=== PATIENT | male | born 1995 | race Caucasian/White ===

== ENCOUNTER 2018-08-25 21:36 | Emergency (ER) | payer OTHER ==
[2018-08-25 22:00] VITALS: PULSE 68
[2018-08-25] MEDS ORDERED: HYDROcodone/APAP 5-325MG 1 EACH TAB PO STA (22:01)
--- NOTE | 2018-08-25 22:28 | XR ---
EXAM: XR Left Foot Complete, 3 or More Views CLINICAL HISTORY: ITS.REASON XR Reason: Pain TECHNIQUE: Frontal, lateral and oblique views of the left foot. COMPARISON: None available FINDINGS: Bones/joints: No evidence of acute fracture or dislocation. Soft tissues: Soft tissue swelling along dorsum of foot. No radiopaque foreign bodies identified. IMPRESSION: No evidence of acute fracture or dislocation.
[2018-08-25] MEDS ORDERED: ACET/COD 300 MG/30 MG STARTER PACK 6 TAB BTL PO STA (23:07)
--- NOTE | 2018-08-25 23:07 | ED ---
General Adult HPI - General Chief complaint: Extremity Injury, Lower Stated complaint: Foot injury Time Seen by Provider: 08/25/18 21:49 Source: patient, RN notes reviewed, old records reviewed Mode of arrival: wheelchair Limitations: no limitations - History of Present Illness Initial comments: 23-year-old male patient presents ED with left foot injury. Patient will see his moving a fridge when it fell onto his left foot and the dorsal aspect. Patient force that he has pain in the dorsal aspect of the midfoot region. Patient denies any ankle or tibia/fibular pain. Patient is not able to bear weight due to pain in left foot. Patient denies any other complaints at this time. Patient is fully vaccinated. Systemic: Pt denies fatigue, fever/chills, rash. Pt denies weakness, night sweats, weight loss. Neuro: Pt denies headache, visual disturbances, syncope or pre-syncope. HEENT: Pt denies ocular discharge or irritation, otalgia, rhinorrhea, pharyngitis or notable lymphadenopathy. Cardiopulmonary: Pt denies chest pain, SOB, heart palpitations, dyspnea on exertion. Abdominal/GI: Pt denies abdominal pain, n/v/d. : Pt denies dysuria, burning w/ urination, frequency/urgency. Denies new onset urinary or bowel incontinence. MSK: Pt denies loss of strength or function in extremities. Neuro: Pt denies new onset weakness, paresthesias. - Related Data Home Medications Medication Instructions Recorded Confirmed No Known Home Medications 08/25/18 08/25/18 Allergies Allergy/AdvReac Type Severity Reaction Status Date / Time Penicillins Allergy Anaphylaxis Verified 08/25/18 21:51 Sulfa (Sulfonamide Allergy Rash/Hives Verified 08/25/18 21:51 Antibiotics) Review of Systems ROS Statement: Those systems with pertinent positive or pertinent negative responses have been documented in the HPI. ROS Other: All systems not noted in ROS Statement are negative. Past Medical History Additional Past Medical History / Comment(s): colitis History of Any Multi-Drug Resistant Organisms: None Reported Past Surgical History: Tonsillectomy Additional Past Surgical History / Comment(s): all teeth removed Past Psychological History: ADD/ADHD, Anxiety, Depression Smoking Status: Current every day smoker Past Alcohol Use History: Rare Past Drug Use History: Marijuana General Exam - General Exam Comments Initial Comments: Constitutional: NAD, AOX3, Pt has pleasant affect. HEENT: NC/AT, trachea midline, neck supple, no lymphadenopathy. Posterior pharynx non erythematous, without exudates. External ears appear normal, without discharge. Mucous membranes moist. Eyes PERRLA, EOM intact. There is no scleral icterus. No pallor noted. Cardiopulmonary: RRR, no murmurs, rubs or gallops, no JVD noted. Lungs CTAB in anterior and posterior grigsby. No peripheral edema. Abdominal exam: Abdomen soft and non-distended. Abdomen non-tender to palpation in all 4 quadrants. Bowel sounds active in LLQ. No hepatosplenomegaly. No ecchymosis Neuro: CN II-XII grossly intact. No nuchal rigidity. No raccon eyes, no vora sign, no hemotympanum. No cervical spinal tenderness. MSK: Dorsal aspect of left foot mildly tender to palpation in the midfoot region. Mild amount of edema. No erythema or ecchymoses. Patient able to wiggle toes. Sensation intact. No ankle or to/fibula tenderness. Distal pulses intact. Capillary refill less than 2 seconds. No posterior calf tenderness bilaterally, homans sign negative bilaterally. Posterior tibialis and radial pulse +2 bilaterally. Sensation intact in upper and lower extremities. Full active ROM in upper and lower extremities, 5/5 stregnth. Limitations: no limitations Course Vital Signs 08/25/18 21:49 Temperature 98.2 F Pulse Rate 68 Respiratory 19 Rate Blood Pressure 114/68 O2 Sat by Pulse 97 Oximetry Medical Decision Making - Medical Decision Making 23-year-old male patient presents ED with left foot injury. Patient will see his moving a fridge when it fell onto his left foot and the dorsal aspect. Patient force that he has pain in the dorsal aspect of the midfoot region. Patient denies any ankle or tibia/fibular pain. Patient is not able to bear weight due to pain in left foot. Patient denies any other complaints at this time. Patient is fully vaccinated. Pt VSS, afebrile. Physical exam displayed: Dorsal aspect of left foot mildly tender to palpation in the midfoot region. Mild amount of edema. No erythema or ecchymoses. Patient able to wiggle toes. Sensation intact. No ankle or to/fibula tenderness. Distal pulses intact. Cap illary refill less than 2 seconds. Plain film displayed no acute process. Posterior ankle splint placed, pt neurovascularly intact after splint placement. Patient cannot bear weight on left foot. Patient to follow with orthopedic consult 1-2 days. Patient return to ER if condition worsens. Case discussed with Dr. Thomas. Disposition Clinical Impression: Foot sprain Disposition: HOME SELF-CARE Condition: Stable Instructions (If sedation given, give patient instructions): Foot Sprain (ED) Additional Instructions: Patient to adhere to previously discussed treatment plan and will take medication(s) as directed. Patient to follow up with PCP in 1-2 days. Patient to return to ED if symptoms do not improve. Follow-up with primary care for right orthopedic consult tomorrow. Return to ER if condition worsens. Do not bear weight on left lower extremity Is patient prescribed a controlled substance at d/c from ED?: No Referrals: Chris Romero DO [Primary Care Provider] - 1-2 days Alex Urrutia DO [Medical Doctor] - 1-2 days
[2018-08-25 23:23] VITALS: BP 118/65; RESP 18; TEMP 98.3
== END 2018-08-25 23:23 | disposition home or self-care (01) ==
LOC: EC 21:36
DX: S93.602A Unspecified sprain of left foot, initial encounter (principal); F17.200 Nicotine dependence, unspecified, uncomplicated; Z88.0 Allergy status to penicillin; Z88.2 Allergy status to sulfonamides; W20.8XXA Other cause of strike by thrown, projected or falling object, initial encounter; Y93.89 Activity, other specified; Y92.009 Unspecified place in unspecified non-institutional (private) residence as the place of occurrence of the external cause
CPT/HCPCS: 29515; 99284

== ENCOUNTER 2020-01-10 13:18 | Emergency (ER) | payer OTHER ==
--- NOTE | 2020-01-10 14:28 | XR ---
EXAMINATION TYPE: XR chest 2V DATE OF EXAM: 01/10/2020 COMPARISON: None HISTORY: 24-year-old male with chest pain TECHNIQUE: PA and lateral views FINDINGS: The cardiomediastinal silhouette, aorta, and pulmonary vasculature are within normal limits. Lungs an d pleural spaces are clear. Gentle levoconvex curvature of the upper thoracic spine. Left shoulder is higher than the right. IMPRESSION: No acute cardiopulmonary process. Query a subtle leftward curvature along the upper thoracic spine.
[2020-01-10 15:33] LABS: Basophils % (A) 1 %; Eosinophils # (A) 0.1 k/uL (0-0.7); Eosinophils % (A) 2 %; HCT 46.6 % (39.0-53.0); HGB 15.4 gm/dL (13.0-17.5); Lymphocytes # (A) 2.3 k/uL (1.0-4.8); Lymphocytes % (A) 35 %; MCH 30.1 pg (25.0-35.0); MCHC 33.1 g/dL (31.0-37.0); MCV 90.8 fL (80.0-100.0); Mean Platelet Volume 7.5; Monocytes # (A) 0.4 k/uL (0-1.0); Monocytes % (A) 6 %; Neutrophils # (A) 3.7 k/uL (1.3-7.7); Neutrophils % (A) 56 %; Platelet Count 188 k/uL (150-450); RBC 5.14 m/uL (4.30-5.90); RDW 12.7 % (11.5-15.5); WBC 6.5 k/uL (3.8-10.6)
[2020-01-10 15:42] LABS: ALT 17 U/L (4-49); AST 34 U/L (17-59); African American GFR (CKD) >90 (>60 ml/min/1.73 sqM); Albumin 4.6 g/dL (3.5-5.0); Alkaline Phosphatase 47 U/L (38-126); Anion Gap 6 mmol/L; Blood Urea Nitrogen 11 mg/dL (9-20); Calcium 9.6 mg/dL (8.4-10.2); Carbon Dioxide 28 mmol/L (22-30); Chloride 105 mmol/L (98-107); Glucose 82 mg/dL (74-99); Magnesium 2.2 mg/dL (1.6-2.3); Non-African American GFR(CKD) >90 (>60 ml/min/1.73 sqM); Potassium 4.8 mmol/L (3.5-5.1); Sodium 139 mmol/L (137-145); Total Bilirubin 0.5 mg/dL (0.2-1.3); Total Protein 7.2 g/dL (6.3-8.2)
[2020-01-10 15:47] LABS: D-Dimer 0.36 mg/L FEU (<0.60); INR 1.1 (<1.2); Partial Thromboplastin Time 26.1 sec (22.0-30.0); Prothrombin Time 10.9 sec (9.0-12.0)
--- NOTE | 2020-01-10 16:02 | ED ---
Chest Pain HPI - General Chief Complaint: Chest Pain Stated Complaint: chest pain, sob Time Seen by Provider: 01/10/20 14:33 Source: patient Mode of arrival: ambulatory Limitations: no limitations - History of Present Illness Initial Comments: 24-year-old male with a decompressed medical history presenting to emergency Department with a chief complaint of chest pain and shortness of breath. Patient states the pain started yesterday night and continues to be worse throughout the day but he states there has been some improvement since this afternoon. Patient states this is a midsternal chest pain without any radiation there is reproducible to palpation. He also reports shortness of breath states the pain is exacerbated with deep breaths. He denies any history of DVT or PE, recent hospitalizations, exogenous hormone use, unilateral leg swelling or pain, hemoptysis. States she is a smoker and does have occasional wheezing in the morning which is somewhat typical for him. He denies any night sweats or chills. He is a smoker. - Related Data Previous Rx's Medication Instructions Recorded Albuterol Sulfate [Ventolin HFA] 1 - 2 puff INHALATION Q6H PRN #1 01/10/20 inhaler Allergies Allergy/AdvReac Type Severity Reaction Status Date / Time Penicillins Allergy Anaphylaxis Verified 01/10/20 13:27 Sulfa (Sulfonamide Allergy Rash/Hives Verified 01/10/20 13:27 Antibiotics) Review of Systems ROS Statement: Those systems with pertinent positive or pertinent negative responses have been documented in the HPI. ROS Other: All systems not noted in ROS Statement are negative. EKG Findings - EKG Comments: EKG Findings:: Sinus bradycardia with sinus arrhythmia. Ventricular rate 45, IA 144, QRS 88, QTC 378. Past Medical History Additional Past Medical History / Comment(s): colitis, History of Any Multi-Drug Resistant Organisms: None Reported Past Surgical History: Tonsillectomy Additional Past Surgical History / Comment(s): all teeth removed, Past Psychological History: ADD/ADHD, Anxiety, Depression, Schizophrenia Smoking Status: Current every day smoker Past Alcohol Use History: Rare Past Drug Use History: Marijuana General Exam Limitations: no limitations General appearance: alert, in no apparent distress Head exam: Present: atraumatic, normocephalic, normal inspection Eye exam: Present: normal appearance, PERRL, EOMI Pupils: Present: normal accommodation ENT exam: Present: normal exam, normal oropharynx, mucous membranes moist, TM's normal bilaterally, normal external ear exam Neck exam: Present: normal inspection, full ROM. Absent: tenderness Respiratory exam: Present: wheezes (Mild diffuse wheezing, bilateral.). Absent: respiratory distress, rales, rhonchi, stridor, decreased breath sounds, prolonged expiratory Cardiovascular Exam: Present: normal rhythm, bradycardia, normal heart sounds. Absent: tachycardia GI/Abdominal exam: Present: soft. Absent: distended, tenderness, guarding, rebound Extremities exam: Present: normal inspection, full ROM, normal capillary refill. Absent: tenderness Back exam: Present: normal inspection, full ROM. Absent: tenderness, CVA tenderness (R), CVA tenderness (L), muscle spasm, paraspinal tenderness, vertebral tenderness Neurological exam: Present: alert, oriented X3, CN II-XII intact, normal gait Psychiatric exam: Present: normal affect, normal mood Skin exam: Present: warm, dry, intact, normal color Course Vital Signs 01/10/20 01/10/20 01/10/20 13:24 14:28 16:11 Temperature 98.6 F 98.1 F Pulse Rate 77 50 L Respiratory 18 16 16 Rate Blood Pressure 118/70 109/64 O2 Sat by Pulse 100 99 Oximetry Chest Pain MDM - Differential Diagnosis Chest Wall Syndrome - MDM 24-year-old male presenting to emergency, the chief complaint of chest pain. On physical examination, patient has midsternal chest pain is seems to be reproducible to palpation. EKG revealed sinus bradycardia with sinus arrhythmia. Ventricular rate 45. Repeat vitals reveal a pulse of 50. The rest of the blood work is within normal limits. Patient also has some mild diffuse wheezing bilaterally. He is a smoker. CBC CMP is unremarkable. Coags within normal limits. D-dimer negative. Initial troponin negative. Chest x-ray is also unremarkable. I gave the patient albuterol inhaler and advised him to alternate between Tylenol and Motrin for the midsternal chest pain. This appears to be atypical chest pain likely costochondritis. Patient advised to follow with his primary care physician. Case discussed with Dr. Cain who cleared the patient for discharge. Patient reported the chest pain has almost resolved upon discharge. Disposition Clinical Impression: Atypical chest pain Disposition: HOME SELF-CARE Condition: Stable Instructions (If sedation given, give patient instructions): Chest Pain (ED), Costochondritis (ED) Additional Instructions: Take Tylenol or Motrin for pain. Take prescribed medication as directed. Return to emergency department if symptoms worsen. Prescriptions: Albuterol Sulfate [Ventolin HFA] 1 - 2 puff INHALATION Q6H PRN #1 inhaler PRN Reason: Wheezing Is patient prescribed a controlled substance at d/c from ED?: No Referrals: Chris Romero DO [Primary Care Provider] - 1-2 days Time of Disposition: 16:24
[2020-01-10 16:08] VITALS: RESP 16
[2020-01-10 16:12] VITALS: BP 109/64; PULSE 50; TEMP 98.1
== END 2020-01-10 16:30 | disposition home or self-care (01) ==
LOC: EC 13:18
DX: R07.89 Other chest pain (principal); R06.02 Shortness of breath; R06.2 Wheezing; R00.1 Bradycardia, unspecified; F17.200 Nicotine dependence, unspecified, uncomplicated; Z88.0 Allergy status to penicillin; Z88.2 Allergy status to sulfonamides
CPT/HCPCS: 36415; 71046; 80053; 83735; 84484; 85025; 85379; 85610; 85730; 93005; 99285

== ENCOUNTER 2020-08-27 17:00 | Emergency (ER) | payer OTHER ==
[2020-08-27 17:03] VITALS: RESP 18
[2020-08-27] MEDS ORDERED: SODIUM CHLORIDE 0.9% 1,000 ML IV STA (17:22)
[2020-08-27 17:52] LABS: Basophils # (A) 0.1 k/uL (0-0.2); Basophils % (A) 0 %; Eosinophils # (A) 0.3 k/uL (0-0.7); Eosinophils % (A) 2 %; HGB 16.6 gm/dL (13.0-17.5); Lymphocytes # (A) 1.4 k/uL (1.0-4.8); Lymphocytes % (A) 9 %; MCH 31.2 pg (25.0-35.0); MCHC 36.1 g/dL (31.0-37.0); MCV 86.4 fL (80.0-100.0); Mean Platelet Volume 7.4; Monocytes # (A) 0.7 k/uL (0-1.0); Monocytes % (A) 4 %; Neutrophils % (A) 84 %; Platelet Count 185 k/uL (150-450); RBC 5.32 m/uL (4.30-5.90); RDW 12.2 % (11.5-15.5); WBC 15.4 k/uL (3.8-10.6)
[2020-08-27 17:59] LABS: Appearance,Urine Clear (Clear); Bilirubin,Urine Negative (Negative); Blood,Urine Negative (Negative); Color,Urine Yellow; Glucose,Urine (UA) Negative (Negative); Ketones,Urine Negative (Negative); Leukocyte Esterase,Urine Trace (Negative); Mucus,Urine Few /hpf; Nitrite,Urine Negative (Negative); PH, Urine 6.5 (5.0-8.0); Protein,Urine Trace (Negative); RBC,Urine 3 /hpf (0-5); Specific Gravity,Urine 1.033 (1.001-1.035); Squamous Epithelial Cell,Urine <1 /hpf (0-4); WBC,Urine <1 /hpf (0-5)
[2020-08-27 18:08] LABS: ALT 21 U/L (4-49); AST 39 U/L (17-59); African American GFR (CKD) >90 (>60 ml/min/1.73 sqM); Alkaline Phosphatase 75 U/L (38-126); Anion Gap 9 mmol/L; Blood Urea Nitrogen 16 mg/dL (9-20); Carbon Dioxide 28 mmol/L (22-30); Chloride 104 mmol/L (98-107); Glucose 85 mg/dL (74-99); Non-African American GFR(CKD) >90 (>60 ml/min/1.73 sqM); Sodium 141 mmol/L (137-145); Total Bilirubin 0.6 mg/dL (0.2-1.3); Total Protein 7.6 g/dL (6.3-8.2)
[2020-08-27 18:19] LABS: Amphetamine Screen,Urine Not Detected (NotDetected); Barbiturate Screen,Urine Not Detected (NotDetected); Benzodiazepines Screen,Urine Not Detected (NotDetected); Cocaine Screen,Urine Not Detected (NotDetected); Methadone Screen, Urine Not Detected (NotDetected); Opiate Screen,Urine Not Detected (NotDetected); Oxycodone Screen, Urine Not Detected (NotDetected); Phencyclidine Screen,Urine Not Detected (NotDetected); Tricyclic Antidepressant,Urine Not Detected (NotDetected); Urn Cannabinoid Scrn Not Detected (NotDetected)
--- NOTE | 2020-08-27 18:19 | XR ---
EXAMINATION TYPE: XR chest 2V DATE OF EXAM: 08/27/2020 COMPARISON: 01/10/2020 HISTORY: Chest pain. TECHNIQUE: Frontal and lateral views of the chest are obtained. FINDINGS: There is no focal air space opacity, pleural effusion, or pneumothorax seen. The cardiac silhouette size is within normal limits. The osseous structures are intact. IMPRESSION: No acute cardiopulmonary process.
--- NOTE | 2020-08-27 18:33 | ED ---
Dizziness HPI - General Chief Complaint: Dizziness Stated Complaint: Dizzines/Nausea Time Seen by Provider: 08/27/20 17:10 Source: patient, RN notes reviewed Mode of arrival: ambulatory Limitations: no limitations - History of Present Illness Initial Comments: patient is a 25-year-old male that presents to the emergency department complaining of dizziness that off-and-on for the last several months. He notes that today it got bad enough that he had to leave work related to come emergency room to get evaluated. He noted dizziness comes and goes on its own with no aggravating factors. He notes that laying down usually makes the dizziness better. He noted that he does have a history of drug abuse but has not touched anything in over a year. Patient was a well-appearing well-hydrated male. He denied any abdominal discomfort chest pain shortness of breath headache nausea vomiting diarrhea constipation fever fatigue chills neck Stiffness neck tenderness.. - Related Data Previous Rx's Medication Instructions Recorded Albuterol Sulfate [Ventolin HFA] 1 - 2 puff INHALATION Q6H PRN #1 01/10/20 inhaler Allergies Allergy/AdvReac Type Severity Reaction Status Date / Time Penicillins Allergy Anaphylaxis Verified 08/27/20 17:03 Sulfa (Sulfonamide Allergy Rash/Hives Verified 08/27/20 17:03 Antibiotics) Review of Systems ROS Statement: Those systems with pertinent positive or pertinent negative responses have been documented in the HPI. ROS Other: All systems not noted in ROS Statement are negative. Past Medical History Additional Past Medical History / Comment(s): colitis, History of Any Multi-Drug Resistant Organisms: None Reported Past Surgical History: Tonsillectomy Additional Past Surgical History / Comment(s): all teeth removed, Past Psychological History: ADD/ADHD, Anxiety, Depression, Schizophrenia Smoking Status: Current every day smoker Past Alcohol Use History: Rare Past Drug Use History: Marijuana General Exam Limitations: no limitations General appearance: alert, in no apparent distress Head exam: Present: atraumatic, normocephalic, normal inspection Eye exam: Present: normal appearance, PERRL, EOMI. Absent: scleral icterus, conjunctival injection, periorbital swelling Neck exam: Present: normal inspection Respiratory exam: Present: normal lung sounds bilaterally. Absent: respiratory distress, wheezes, rales, rhonchi, stridor Cardiovascular Exam: Present: regular rate, normal rhythm, normal heart sounds. Absent: systolic murmur, diastolic murmur, rubs, gallop, clicks GI/Abdominal exam: Present: soft, normal bowel sounds. Absent: distended, tenderness, guarding, rebound, rigid Extremities exam: Present: normal inspection, full ROM, normal capillary refill. Absent: tenderness, pedal edema, joint swelling, calf tenderness Neurological exam: Present: alert, oriented X3 Psychiatric exam: Present: normal affect, normal mood Skin exam: Present: warm, dry, intact, normal color. Absent: rash Course Vital Signs 08/27/20 17:01 Temperature 98.2 F Pulse Rate 66 Respiratory 18 Rate Blood Pressure 135/67 O2 Sat by Pulse 99 Oximetry EKG Findings - EKG Comments: EKG Findings:: ventricular rate 87 bpm, IA interval 144 ms, QRS duration 92 ms, QT/QTC 350/421 ms, P-R-T axes 77/82/70. Normal sinus rhythm, normal ECG. Medical Decision Making - Medical Decision Making 25-year-old male complaining of dizziness for the past several months that off-and-on comes and goes with no aggravating or alleviating factors. Labs, chest x-ray, EKG, manager cardiac cath him 1 L normal saline ordered. Labs: White blood cells 15.4, rest of labs unremarkable. Chest x-ray negative for any acute cardiopulmonary process. case discussed with Dr. Mercado, patient can discharge home with close follow-up to primary care and neurology. - Lab Data Result diagrams: 08/27/20 17:40 08/27/20 17:40 Lab Results 08/27/20 08/27/20 08/27/20 Range/Units 17:40 17:40 17:40 WBC 15.4 H (3.8-10.6) k/uL RBC 5.32 (4.30-5.90) m/uL Hgb 16.6 (13.0-17.5) gm/dL Hct 46.0 (39.0-53.0) % MCV 86.4 (80.0-100.0) fL MCH 31.2 (25.0-35.0) pg MCHC 36.1 (31.0-37.0) g/dL RDW 12.2 (11.5-15.5) % Plt Count 185 (150-450) k/uL MPV 7.4 Neutrophils % 84 % Lymphocytes % 9 % Monocytes % 4 % Eosinophils % 2 % Basophils % 0 % Neutrophils # 13.0 H (1.3-7.7) k/uL Lymphocytes # 1.4 (1.0-4.8) k/uL Monocytes # 0.7 (0-1.0) k/uL Eosinophils # 0.3 (0-0.7) k/uL Basophils # 0.1 (0-0.2) k/uL Sodium 141 (137-145) mmol/L Potassium 4.0 (3.5-5.1) mmol/L Chloride 104 (98-107) mmol/L Carbon Dioxide 28 (22-30) mmol/L Anion Gap 9 mmol/L BUN 16 (9-20) mg/dL Creatinine 1.04 (0.66-1.25) mg/dL Est GFR (CKD-EPI)AfAm >90 (>60 ml/min/1.73 sqM) Est GFR (CKD-EPI)NonAf >90 (>60 ml/min/1.73 sqM) Glucose 85 (74-99) mg/dL Calcium 10.0 (8.4-10.2) mg/dL Total Bilirubin 0.6 (0.2-1.3) mg/dL AST 39 (17-59) U/L ALT 21 (4-49) U/L Alkaline Phosphatase 75 (38-126) U/L Total Protein 7.6 (6.3-8.2) g/dL Albumin 5.0 (3.5-5.0) g/dL Urine Color Urine Appearance (Clear) Urine pH (5.0-8.0) Ur Specific Stewart (1.001-1.035) Urine Protein (Negative) Urine Glucose (UA) (Negative) Urine Ketones (Negative) Urine Blood (Negative) Urine Nitrite (Negative) Urine Bilirubin (Negative) Urine Urobilinogen (<2.0) mg/dL Ur Leukocyte Esterase (Negative) Urine RBC (0-5) /hpf Urine WBC (0-5) /hpf Ur Squamous Epith Cells (0-4) /hpf Urine Mucus (None) /hpf Urine Opiates Screen Not Detected (NotDetected) Ur Oxycodone Screen Not Detected (NotDetected) Urine Methadone Screen Not Detected (NotDetected) Ur Propoxyphene Screen Not Detected (NotDetected) Ur Barbiturates Screen Not Detected (NotDetected) U Tricyclic Antidepress Not Detected (NotDetected) Ur Phencyclidine Scrn Not Detected (NotDetected) Ur Amphetamines Screen Not Detected (NotDetected) U Methamphetamines Scrn Not Detected (NotDetected) U Benzodiazepines Scrn Not Detected (NotDetected) Urine Cocaine Screen Not Detected (NotDetected) U Marijuana (THC) Screen Not Detected (NotDetected) 08/27/20 Range/Units 17:40 WBC (3.8-10.6) k/uL RBC (4.30-5.90) m/uL Hgb (13.0-17.5) gm/dL Hct (39.0-53.0) % MCV (80.0-100.0) fL MCH (25.0-35.0) pg MCHC (31.0-37.0) g/dL RDW (11.5-15.5) % Plt Count (150-450) k/uL MPV Neutrophils % % Lymphocytes % % Monocytes % % Eosinophils % % Basophils % % Neutrophils # (1.3-7.7) k/uL Lymphocytes # (1.0-4.8) k/uL Monocytes # (0-1.0) k/uL Eosinophils # (0-0.7) k/uL Basophils # (0-0.2) k/uL Sodium (137-145) mmol/L Potassium (3.5-5.1) mmol/L Chloride (98-107) mmol/L Carbon Dioxide (22-30) mmol/L Anion Gap mmol/L BUN (9-20) mg/dL Creatinine (0.66-1.25) mg/dL Est GFR (CKD-EPI)AfAm (>60 ml/min/1.73 sqM) Est GFR (CKD-EPI)NonAf (>60 ml/min/1.73 sqM) Glucose (74-99) mg/dL Calcium (8.4-10.2) mg/dL Total Bilirubin (0.2-1.3) mg/dL AST (17-59) U/L ALT (4-49) U/L Alkaline Phosphatase (38-126) U/L Total Protein (6.3-8.2) g/dL Albumin (3.5-5.0) g/dL Urine Color Yellow Urine Appearance Clear (Clear) Urine pH 6.5 (5.0-8.0) Ur Specific Stewart 1.033 (1.001-1.035) Urine Protein Trace H (Negative) Urine Glucose (UA) Negative (Negative) Urine Ketones Negative (Negative) Urine Blood Negative (Negative) Urine Nitrite Negative (Negative) Urine Bilirubin Negative (Negative) Urine Urobilinogen 2.0 (<2.0) mg/dL Ur Leukocyte Esterase Trace H (Negative) Urine RBC 3 (0-5) /hpf Urine WBC <1 (0-5) /hpf Ur Squamous Epith Cells <1 (0-4) /hpf Urine Mucus Few H (None) /hpf Urine Opiates Screen (NotDetected) Ur Oxycodone Screen (NotDetected) Urine Methadone Screen (NotDetected) Ur Propoxyphene Screen (NotDetected) Ur Barbiturates Screen (NotDetected) U Tricyclic Antidepress (NotDetected) Ur Phencyclidine Scrn (NotDetected) Ur Amphetamines Screen (NotDetected) U Methamphetamines Scrn (NotDetected) U Benzodiazepines Scrn (NotDetected) Urine Cocaine Screen (NotDetected) U Marijuana (THC) Screen (NotDetected) - EKG Data -: EKG Interpreted by Me EKG shows normal: sinus rhythm Rate: normal EKG Comments: ventricular rate 87 bpm, IA interval 144 ms, QRS duration 92 ms, QT/QTC 350/421 ms, P-R-T axes 77/82/70. Normal sinus rhythm, normal ECG. Disposition Clinical Impression: Dehydration, Dizziness Disposition: HOME SELF-CARE Condition: Stable Instructions (If sedation given, give patient instructions): Dizziness (ED) Additional Instructions: Please return to the Emergency Department if symptoms worsen or any other concerns. Follow-up with primary care and neurology as soon as possible. Increase oral fluid intake. Avoid any strenuous activity or exercise. Is patient prescribed a controlled substance at d/c from ED?: No Referrals: None,Stated [Primary Care Provider] - 1-2 days Saurabh Samuel MD [STAFF PHYSICIAN] - 1-2 days Time of Disposition: 18:56
[2020-08-27 19:12] VITALS: BP 118/77; PULSE 75; TEMP 98
== END 2020-08-27 19:12 | disposition home or self-care (01) ==
LOC: EC 17:00
DX: E86.0 Dehydration (principal); F17.200 Nicotine dependence, unspecified, uncomplicated; Z88.0 Allergy status to penicillin; Z88.2 Allergy status to sulfonamides
CPT/HCPCS: 36415; 71046; 80053; 80306; 81001; 85025; 93005; 96360; 99284

== ENCOUNTER 2020-10-31 15:27 | Emergency (ER) | payer OTHER ==
[2020-10-31 17:35] VITALS: BP 129/81; PULSE 65; TEMP 98.3
--- NOTE | 2020-10-31 18:29 | XR ---
PROCEDURE: XR knee complete RT - 3V DATE AND TIME: 10/31/2020 5:49 PM CLINICAL INDICATION: PHH; Pain after slipping TECHNIQUE: Department protocol COMPARISON: None FINDINGS: There is no fracture or malalignment. Bipartite patella, congenital normal variant, is noted. The soft tissues are unremarkable. IMPRESSION: No acute radiographic process.
--- NOTE | 2020-10-31 18:41 | ED ---
Lower Extremity Injury HPI - General Chief Complaint: Extremity Injury, Lower Stated Complaint: Knee Pain Time Seen by Provider: 10/31/20 18:34 Source: patient Mode of arrival: ambulatory Limitations: no limitations - History of Present Illness Initial Comments: 25-year-old male presents to emergency Department with a chief complaint of right knee pain. Patient states the incident occurred earlier today while he was ordered. Patient reports his leg slipped, and he felt a pop in her right knee. States the pain is currently limited range of motion with flexion of the knee. Also reports pain exacerbation with flexion of the knee. He denies any associated ecchymosis swelling or erythema. Denies paresthesias or weakness in the leg. Does report previous history to his tendons and ligaments of the [place] but he never went surgical repair. - Related Data Previous Rx's Medication Instructions Recorded Albuterol Sulfate [Ventolin HFA] 1 - 2 puff INHALATION Q6H PRN #1 01/10/20 inhaler Allergies Allergy/AdvReac Type Severity Reaction Status Date / Time Penicillins Allergy Anaphylaxis Verified 10/31/20 17:35 Sulfa (Sulfonamide Allergy Rash/Hives Verified 10/31/20 17:35 Antibiotics) Review of Systems ROS Statement: Those systems with pertinent positive or pertinent negative responses have been documented in the HPI. ROS Other: All systems not noted in ROS Statement are negative. Past Medical History Additional Past Medical History / Comment(s): colitis, History of Any Multi-Drug Resistant Organisms: None Reported Past Surgical History: Tonsillectomy Additional Past Surgical History / Comment(s): all teeth removed, Past Psychological History: ADD/ADHD, Anxiety, Depression, Schizophrenia Smoking Status: Current every day smoker Past Alcohol Use History: Rare Past Drug Use History: Marijuana General Exam Limitations: no limitations General appearance: alert, in no apparent distress Head exam: Present: atraumatic, normocephalic, normal inspection Eye exam: Present: normal appearance, PERRL, EOMI Pupils: Present: normal accommodation ENT exam: Present: normal exam, normal oropharynx, mucous membranes moist Neck exam: Present: normal inspection, full ROM Respiratory exam: Present: normal lung sounds bilaterally. Absent: respiratory distress Cardiovascular Exam: Present: regular rate, normal rhythm, normal heart sounds. Absent: systolic murmur GI/Abdominal exam: Present: soft. Absent: distended, tenderness, guarding Extremities exam: Present: normal inspection, full ROM, tenderness (Medial right knee tenderness), normal capillary refill, other (Operable DP and PT bilaterally). Absent: pedal edema, joint swelling Back exam: Present: normal inspection, full ROM. Absent: tenderness, CVA tenderness (R), CVA tenderness (L), muscle spasm, paraspinal tenderness, vertebral tenderness Neurological exam: Present: alert, oriented X3 Psychiatric exam: Present: normal affect, normal mood Skin exam: Present: warm, dry, intact, normal color Course Vital Signs 10/31/20 10/31/20 10/31/20 17:32 18:35 19:00 Temperature 98.3 F Pulse Rate 65 Respiratory 18 16 16 Rate Blood Pressure 129/81 O2 Sat by Pulse 99 Oximetry Medical Decision Making - Medical Decision Making 25-year-old male presents to emergency department with a chief complaint of right knee pain. On physical examination, patient is neurovascularly intact in the right knee. X-rays are unremarkable. Víctor wrap was applied. Advised him to follow-up with claims account specialist. Return parameters were thoroughly discussed with patient is understanding and agreeable. Case discussed physician. Disposition Clinical Impression: Right knee injury, Contusion of right knee Disposition: HOME SELF-CARE Condition: Stable Instructions (If sedation given, give patient instructions): Knee Sprain (ED) Additional Instructions: Follow-up with claims account specialist. Return to emergency department if symptoms worsen. Is patient prescribed a controlled substance at d/c from ED?: No Referrals: Chris Romero DO [Primary Care Provider] - 1-2 days Jamari Frances MD [STAFF PHYSICIAN] - 1-2 days Time of Disposition: 18:41
[2020-10-31 19:02] VITALS: RESP 16
== END 2020-10-31 23:00 | disposition home or self-care (01) ==
LOC: EC 15:27
DX: S80.01XA Contusion of right knee, initial encounter (principal); F17.200 Nicotine dependence, unspecified, uncomplicated; Z88.2 Allergy status to sulfonamides; Z88.0 Allergy status to penicillin; W01.0XXA Fall on same level from slipping, tripping and stumbling without subsequent striking against object, initial encounter; Y92.89 Other specified places as the place of occurrence of the external cause; Y99.0 Civilian activity done for income or pay
CPT/HCPCS: 99283

== ENCOUNTER 2020-12-18 07:03 | Emergency (ER) | payer OTHER ==
--- NOTE | 2020-12-18 09:37 | ED ---
General Adult HPI - General Chief complaint: ENT Stated complaint: sore throat, nausea Time Seen by Provider: 12/18/20 07:13 Source: patient, RN notes reviewed Mode of arrival: ambulatory Limitations: no limitations - History of Present Illness Initial comments: Patient is a 25-year-old male that presents to emergency room complaining of sore throat for the past several days. He notes that he did come in contact with somebody that was exposed to Covid. He notes that he can emergency room to get tested for Covid at this time. He denied any other issues or complaints. Otherwise well-appearing. He denied shortness of breath chest pain headache nausea vomiting diarrhea constipation fever fatigue chills. - Related Data Previous Rx's Medication Instructions Recorded Albuterol Sulfate [Ventolin HFA] 1 - 2 puff INHALATION Q6H PRN #1 01/10/20 inhaler Allergies Allergy/AdvReac Type Severity Reaction Status Date / Time Penicillins Allergy Anaphylaxis Verified 10/31/20 17:35 Sulfa (Sulfonamide Allergy Rash/Hives Verified 10/31/20 17:35 Antibiotics) Review of Systems ROS Statement: Those systems with pertinent positive or pertinent negative responses have been documented in the HPI. ROS Other: All systems not noted in ROS Statement are negative. Past Medical History Additional Past Medical History / Comment(s): colitis, History of Any Multi-Drug Resistant Organisms: None Reported Past Surgical History: Tonsillectomy Additional Past Surgical History / Comment(s): all teeth removed, Past Psychological History: ADD/ADHD, Anxiety, Depression, Schizophrenia Smoking Status: Former smoker Past Alcohol Use History: Rare Past Drug Use History: None Reported General Exam Limitations: no limitations General appearance: alert, in no apparent distress Head exam: Present: atraumatic, normocephalic, normal inspection Eye exam: Present: normal appearance, PERRL, EOMI. Absent: scleral icterus, conjunctival injection, periorbital swelling ENT exam: Present: normal exam, mucous membranes moist Neck exam: Present: normal inspection Respiratory exam: Present: normal lung sounds bilaterally. Absent: respiratory distress, wheezes, rales, rhonchi, stridor Cardiovascular Exam: Present: regular rate, normal rhythm, normal heart sounds. Absent: systolic murmur, diastolic murmur, rubs, gallop, clicks Extremities exam: Present: normal inspection, full ROM, normal capillary refill. Absent: tenderness, pedal edema, joint swelling, calf tenderness Neurological exam: Present: alert, oriented X3 Psychiatric exam: Present: normal affect, normal mood Skin exam: Present: warm, dry, intact, normal color. Absent: rash Course Vital Signs 12/18/20 07:07 Temperature 98 F Pulse Rate 68 Respiratory 18 Rate Blood Pressure 120/79 O2 Sat by Pulse 100 Oximetry Medical Decision Making - Medical Decision Making 25-year-old male wanting a Covid test due to exposure. Cepheid 4 Plex under. Cepheid negative for Covid and flu. Case discussed with Dr. Franklin, patient can discharge home with follow-up to primary care. - Lab Data Lab Results 12/18/20 12/18/20 Range/Units 07:38 07:38 Influenza Type A (PCR) Not Detected (Not Detectd) Influenza Type B (PCR) Not Detected (Not Detectd) RSV (PCR) Not Detected (Not Detectd) SARS-CoV-2 (PCR) Not Detected (Not Detectd) Group A Strep Rapid Negative (Negative) Disposition Clinical Impression: Encounter for screening for COVID-19 Disposition: HOME SELF-CARE Condition: Stable Instructions (If sedation given, give patient instructions): Coronavirus Disease 2019 (COVID-19) Additional Instructions: Please return to the Emergency Department if symptoms worsen or any other concerns. Is patient prescribed a controlled substance at d/c from ED?: No Referrals: Chris Romero DO [Primary Care Provider] - 1-2 days Time of Disposition: 09:37
[2020-12-18 09:44] VITALS: BP 132/83; PULSE 101; RESP 16; TEMP 98.6
== END 2020-12-18 09:44 | disposition home or self-care (01) ==
LOC: EC 07:03
DX: R11.0 Nausea (principal); Z88.0 Allergy status to penicillin; Z88.2 Allergy status to sulfonamides; Z20.822 Contact with and (suspected) exposure to COVID-19; Z87.891 Personal history of nicotine dependence
CPT/HCPCS: 87081; 87430; 87636; 99283

== ENCOUNTER 2022-02-25 18:36 | Emergency (ER) | payer OTHER ==
[2022-02-25] MEDS ORDERED: KETOROLAC 15 MG/ML 1 ML VIAL IM STA (19:48)
--- NOTE | 2022-02-25 20:06 | ED ---
General Adult HPI - General Chief complaint: Chest Pain Stated complaint: rib pain Time Seen by Provider: 02/25/22 19:35 Source: patient Mode of arrival: ambulatory Limitations: no limitations - History of Present Illness Initial comments: Patient is a 27-year-old male presenting with chief complaint of left-sided rib pain. Patient states that a few days ago he was wrestling with his girlfriend when he fell off of the bed and onto her knee. He admits to pain with deep inspiration and on palpation. No shortness of breath. No pain outside of the localized area. No radiation of pain. No cough, congestion, fever, chills. No palpitations or weakness. No dizziness or syncope. - Related Data Previous Rx's Medication Instructions Recorded Lidocaine 5% Patch [Lidoderm 5% 1 patch TOPICAL DAILY PRN #1 pack 02/25/22 Patch] Allergies Allergy/AdvReac Type Severity Reaction Status Date / Time Penicillins Allergy Anaphylaxis Verified 02/25/22 21:25 Sulfa (Sulfonamide Allergy Rash/Hives Verified 02/25/22 21:25 Antibiotics) on entire body Review of Systems ROS Statement: Those systems with pertinent positive or pertinent negative responses have been documented in the HPI. ROS Other: All systems not noted in ROS Statement are negative. Past Medical History Additional Past Medical History / Comment(s): colitis, History of Any Multi-Drug Resistant Organisms: None Reported Past Surgical History: Tonsillectomy Additional Past Surgical History / Comment(s): all teeth removed, Past Psychological History: ADD/ADHD, Anxiety, Depression, Schizophrenia Smoking Status: Former smoker Past Alcohol Use History: Rare Past Drug Use History: None Reported General Exam Limitations: no limitations General appearance: alert, in no apparent distress Head exam: Present: atraumatic, normocephalic, normal inspection Eye exam: Present: normal appearance Neck exam: Present: normal inspection Respiratory exam: Present: normal lung sounds bilaterally, chest wall tenderness. Absent: respiratory distress, wheezes, rales, rhonchi, stridor Cardiovascular Exam: Present: regular rate, normal rhythm, normal heart sounds. Absent: systolic murmur, diastolic murmur, rubs, gallop, clicks Neurological exam: Present: alert, oriented X3, CN II-XII intact Psychiatric exam: Present: normal affect, normal mood Skin exam: Present: warm, dry, intact, normal color. Absent: rash Course Vital Signs 02/25/22 02/25/22 19:24 21:29 Temperature 98 F 98.9 F Pulse Rate 70 61 Respiratory 16 18 Rate Blood Pressure 114/76 115/74 O2 Sat by Pulse 100 96 Oximetry Medical Decision Making - Medical Decision Making Patient is 27-year-old male presenting with chief complaint of left-sided rib pain. Patient sustained an injury a few days ago when he fell off the bed and into his girlfriend's knee. He has not been taking any supportive treatment at home. Physical examination is unremarkable. X-ray shows no fracture. Patient is given Toradol here, reports improvement in his symptoms. Educated on suppo rtive treatment at home with Motrin and Tylenol. He is heat and ice as needed. Provided patient with prescription for lidocaine patches. Follow-up with PCP. Report back to ER with any new or worsening symptoms. Discussed return parameters and answered all questions. Patient conveyed verbal understanding and agreed to the plan. I discussed this case in detail with my attending Dr. Villalba Disposition Clinical Impression: Rib pain Disposition: HOME SELF-CARE Condition: Good Instructions (If sedation given, give patient instructions): Rib Contusion (ED) Additional Instructions: Follow-up with PCP. Report back to ER with any new or worsening symptoms. Take Motrin and Tylenol for pain control. Use heat and ice as needed. Use lidocaine patches as instructed. Prescriptions: Lidocaine 5% Patch [Lidoderm 5% Patch] 1 patch TOPICAL DAILY PRN #1 pack PRN Reason: Pain Is patient prescribed a controlled substance at d/c from ED?: No Referrals: None,Stated [Primary Care Provider] - 1-2 days Time of Disposition: 21:23
--- NOTE | 2022-02-25 21:03 | XR ---
EXAMINATION TYPE: XR ribs LT w pa chest xray DATE OF EXAM: 02/25/2022 8:26 PM INDICATION: Patient age:Male; 27 years old; Reason for study: rib pain post injury; COMPARISON: Chest radiograph 08/27/2020 TECHNIQUE: Frontal and oblique views of the left ribs with frontal chest radiograph. FINDINGS: The ribs have a normal appearance. No evidence of fracture. Overall, the lungs are clear. The cardiac silhouette is normal in size. The remaining osseous structures are intact. IMPRESSION: No acute osseous pathology.
[2022-02-25 21:30] VITALS: BP 115/74; PULSE 61; RESP 18; TEMP 98.9
== END 2022-02-25 21:30 | disposition home or self-care (01) ==
LOC: EC 18:36
DX: R07.81 Pleurodynia (principal); F41.9 Anxiety disorder, unspecified; F32.A Depression, unspecified; Z88.0 Allergy status to penicillin; Z88.1 Allergy status to other antibiotic agents; Z88.2 Allergy status to sulfonamides; Z87.891 Personal history of nicotine dependence
CPT/HCPCS: 71101; 99285; 96372; J1885

== ENCOUNTER 2022-06-16 13:51 | Emergency (ER) | payer OTHER ==
--- NOTE | 2022-06-16 14:13 | ED ---
General Adult HPI <Kamini Rodriguez - Last Filed: 06/16/22 14:11> <Summer Mckeon - Last Filed: 06/16/22 19:58> - General Stated complaint: abd pain Time Seen by Provider: 06/16/22 14:11 - History of Present Illness Initial comments: male presents the emergency department with a chief complaint of abdominal pain times last night. He reports associated symptoms of nausea and vomiting and diarrhea (Kamini Rodriguez) Patient is a 27-year-old male who presents to the emergency department for abdominal pain. Patient reports upper abdominal pain since last night. There is no radiation. Patient had some nausea which has resolved. No vomiting, fever, chills. He has had several episodes of watery diarrhea, nonbloody. No burning with urination, blood in the urine, back pain. Denies alcohol use. Patient does note his son was here yesterday for similar symptoms and was told it was likely a viral bug. (Summer Mckeon) - Related Data Previous Rx's Medication Instructions Recorded Lidocaine 5% Patch [Lidoderm 5% 1 patch TOPICAL DAILY PRN #1 pack 02/25/22 Patch] Ibuprofen [Motrin] 600 mg PO Q8HR PRN #30 tab 06/16/22 Ondansetron Odt [Zofran Odt] 4 mg PO Q8HR PRN #10 tab 06/16/22 Allergies Allergy/AdvReac Type Severity Reaction Status Date / Time Penicillins Allergy Anaphylaxis Verified 06/16/22 14:12 Sulfa (Sulfonamide Allergy Rash/Hives Verified 06/16/22 14:12 Antibiotics) on entire body Review of Systems ROS Other: All systems not noted in ROS Statement are negative. <Kamini Rodriguez - Last Filed: 06/16/22 14:11> ROS Other: All systems not noted in ROS Statement are negative. <Summer Mckeon - Last Filed: 06/16/22 19:58> ROS Statement: Those systems with pertinent positive or pertinent negative responses have been documented in the HPI. Past Medical History Past Medical History: No Reported History Additional Past Medical History / Comment(s): colitis, History of Any Multi-Drug Resistant Organisms: None Reported Past Surgical History: Adenoidectomy, Tonsillectomy Additional Past Surgical History / Comment(s): all teeth removed, Past Psychological History: ADD/ADHD, Anxiety, Depression, Schizophrenia Smoking Status: Former smoker Past Alcohol Use History: Rare Past Drug Use History: None Reported <Kamini Rodriguez - Last Filed: 06/16/22 14:11> General Exam <Kamini Rodriguez - Last Filed: 06/16/22 14:11> General appearance: alert, in no apparent distress Head exam: Present: atraumatic, normocephalic, normal inspection Respiratory exam: Present: normal lung sounds bilaterally. Absent: respiratory distress, wheezes, rales, rhonchi, stridor Cardiovascular Exam: Present: regular rate, normal rhythm, normal heart sounds. Absent: systolic murmur, diastolic murmur, rubs, gallop, clicks GI/Abdominal exam: Present: soft, normal bowel sounds. Absent: distended, tenderness, guarding, rebound, rigid Neurological exam: Present: alert, oriented X3, CN II-XII intact Psychiatric exam: Present: normal affect, normal mood Skin exam: Present: warm, dry, intact, normal color. Absent: rash <Summer Mckeon - Last Filed: 06/16/22 19:58> - General Exam Comments Initial Comments: Visual Physical Exam Vital signs reviewed General: Well-appearing, nontoxic, no acute distress. Head: Normocephalic, atraumatic Eyes: PERRLA, EOMI ENT: Airway patent Chest: Nonlabored breathing Skin: No visual rash, normal skin tone Neuro: Alert and oriented 3 Musculoskeletal: No gross abnormalities (Kamini Rodriguez) Course Vital Signs 06/16/22 06/16/22 06/16/22 14:10 17:45 19:29 Temperature 97.4 F L 96.3 F L 97.6 F Pulse Rate 75 56 L 50 L Respiratory 18 18 16 Rate Blood Pressure 124/76 112/68 107/70 O2 Sat by Pulse 100 94 L 97 Oximetry Medical Decision Making - Lab Data Result diagrams: 06/16/22 15:00 06/16/22 15:00 <Summer Mckeon - Last Filed: 06/16/22 19:58> - Medical Decision Making Was pt. sent in by a medical professional or institution (, PA, MANAGER TRANSIT, urgent care, hospital, or half-way...) When possible be specific @ -No Did you speak to anyone other than the patient for history (EMS, parent, family, police, friend...)? What history was obtained from this source @ -No Did you review nursing and triage notes (agree or disagree)? Why? @ -I reviewed and agree with nursing and triage notes Were old charts reviewed (outside hosp., previous admission, EMS record, old EKG, old radiological studies, urgent care reports/EKG's, half-way records)? Report findings @ -No old charts were reviewed Differential Diagnosis (chest pain, altered mental status, abdominal pain women, abdominal pain men, vaginal bleeding, weakness, fever, dyspnea, syncope, headache, dizziness, GI bleed, back pain, seizure, CVA, palpatations, mental health)? @ -Differential Abdominal Pain Men: Appendicitis, cholecystitis, diverticulosis, ischemic bowel, pancreatitis, hepatitis, UTI, gastroenteritis, AAA, incarcerated hernia, bowel obstruction, constipation, inflammatory bowel, hepatitis, peptic ulcer disease, splenic infarction, perforated viscus, testicular torsion, this is not meant to be an all-inclusive list EKG interpreted by me (3pts min.). @ -As above X-rays interpreted by me (1pt min.). @ -None done CT interpreted by me (1pt min.). @ -None done U/S interpreted by me (1pt. min.). @ -None done What testing was considered but not performed or refused? (CT, X-rays, U/S, labs)? Why? @ -None What meds were considered but not given or refused? Why? @ -None Did you discuss the management of the patient with other professionals (professionals i.e. , PA, MANAGER TRANSIT, lab, RT, psych nurse, dialysis social worker, substance addiction coordinator, teacher, deck officer, pillowcase folder)? Give summary @ -No Was smoking cessation discussed for >3mins.? @ -No Was critical care preformed (if so, how long)? @ -[No] Were there social determinants of health that impacted care today? How? (Homelessness, low income, unemployed, alcoholism, drug addiction, transportation, low edu. Level, literacy, decrease access to med. care, residential, rehab)? @ -[No] Was there de-escalation of care discussed even if they declined (Discuss DNR or withdrawal of care, Hospice)? DNR status @ -[No] What co-morbidities impacted this encounter? (DM, HTN, Smoking, COPD, CAD, Cancer, CVA, ARF, Chemo, Hep., AIDS, mental health diagnosis, sleep apnea, morbid obesity)? @ -[None] Was patient admitted / discharged? Hospital course, mention meds given and route, prescriptions, significant lab abnormalities, going to OR and other per tinent info. @ -Patient presenting with upper abdominal pain. He is well-appearing and in no apparent distress.Upon evaluation patient is on the phone asking his to bring him at [facility]. He is afebrile, hemodynamically stable. The abdomen is soft and nontender. Laboratory studies unremarkable. Patient given fluid bolus, Toradol, GI cocktail. He is feeling significantly improved on reevaluation. I suspect symptoms related to viral etiology. Patient will be discharged with symptomatic management he will increase fluids and we discussed return parameters. New problem with uncertain prognosis? @ -[No] Drug Therapy requiring intensive monitoring for toxicity (Heparin, Nitro, Insulin, Cardizem)? @ -[No] Were any procedures done? @ -[No] Diagnosis/symptom? @ -abdominal pain Acute, or Chronic, or Acute on Chronic? @ -acute Uncomplicated (without systemic symptoms) or Complicated (systemic symptoms)? @ -uncomplicated Side effects of treatment? @ -[No] Exacerbation, Progression, or Severe Exacerbation? @ -[No] Poses a threat to life or bodily function? How? (Chest pain, [place], [place], pneumonia, PE, COPD, DKA, ARF, appy, cholecystitis, CVA, Diverticulitis, Homicidal, Suicidal, threat to staff... and all critical care pts) @ -[No] Dr. Boone is my attending (Summer Mckeon) - Lab Data Lab Results 06/16/22 06/16/22 Range/Units 15:00 15:00 WBC 6.8 (3.8-10.6) k/uL RBC 4.97 (4.30-5.90) m/uL Hgb 15.6 (13.0-17.5) gm/dL Hct 43.7 (39.0-53.0) % MCV 88.1 (80.0-100.0) fL MCH 31.4 (25.0-35.0) pg MCHC 35.6 (31.0-37.0) g/dL RDW 12.4 (11.5-15.5) % Plt Count 160 (150-450) k/uL MPV 8.3 Neutrophils % 63 % Lymphocytes % 28 % Monocytes % 6 % Eosinophils % 1 % Basophils % 1 % Neutrophils # 4.3 (1.3-7.7) k/uL Lymphocytes # 1.9 (1.0-4.8) k/uL Monocytes # 0.4 (0-1.0) k/uL Eosinophils # 0.1 (0-0.7) k/uL Basophils # 0.0 (0-0.2) k/uL Sodium 139 (137-145) mmol/L Potassium 3.9 (3.5-5.1) mmol/L Chloride 104 (98-107) mmol/L Carbon Dioxide 26 (22-30) mmol/L Anion Gap 9 mmol/L BUN 20 (9-20) mg/dL Creatinine 0.90 (0.66-1.25) mg/dL Est GFR (CKD-EPI)AfAm >90 (>60 ml/min/1.73 sqM) Est GFR (CKD-EPI)NonAf >90 (>60 ml/min/1.73 sqM) Glucose 75 (74-99) mg/dL Calcium 9.0 (8.4-10.2) mg/dL Total Bilirubin 0.4 (0.2-1.3) mg/dL AST 28 (17-59) U/L ALT 16 (4-49) U/L Alkaline Phosphatase 44 (38-126) U/L Total Protein 7.0 (6.3-8.2) g/dL Albumin 4.5 (3.5-5.0) g/dL Amylase 43 (30-110) U/L Lipase 131 (23-300) U/L Disposition <Kamini Rodriguez - Last Filed: 06/16/22 14:11> Is patient prescribed a controlled substance at d/c from ED?: No Time of Disposition: 19:10 <Summer Mckeon - Last Filed: 06/16/22 19:58> Clinical Impression: Abdominal pain Disposition: HOME SELF-CARE Condition: Good Instructions (If sedation given, give patient instructions): Acute Abdominal Pain (ED) Additional Instructions: Increase fluid intake.Take medication as directed. Please follow-up with your primary care provider in 1-2 days. Return to the emergency department if you experience new, concerning, or worsening symptoms. Prescriptions: Ibuprofen [Motrin] 600 mg PO Q8HR PRN #30 tab PRN Reason: Pain Ondansetron Odt [Zofran Odt] 4 mg PO Q8HR PRN #10 tab PRN Reason: Nausea Referrals: None,Stated [Primary Care Provider] - 1-2 days
[2022-06-16 15:55] LABS: Basophils % (A) 1 %; Eosinophils # (A) 0.1 k/uL (0-0.7); Eosinophils % (A) 1 %; HCT 43.7 % (39.0-53.0); HGB 15.6 gm/dL (13.0-17.5); Lymphocytes # (A) 1.9 k/uL (1.0-4.8); Lymphocytes % (A) 28 %; MCH 31.4 pg (25.0-35.0); MCHC 35.6 g/dL (31.0-37.0); MCV 88.1 fL (80.0-100.0); Mean Platelet Volume 8.3; Monocytes # (A) 0.4 k/uL (0-1.0); Monocytes % (A) 6 %; Neutrophils # (A) 4.3 k/uL (1.3-7.7); Neutrophils % (A) 63 %; Platelet Count 160 k/uL (150-450); RBC 4.97 m/uL (4.30-5.90); RDW 12.4 % (11.5-15.5); WBC 6.8 k/uL (3.8-10.6)
[2022-06-16 16:23] LABS: ALT 16 U/L (4-49); AST 28 U/L (17-59); African American GFR (CKD) >90 (>60 ml/min/1.73 sqM); Albumin 4.5 g/dL (3.5-5.0); Alkaline Phosphatase 44 U/L (38-126); Amylase 43 U/L (30-110); Anion Gap 9 mmol/L; Blood Urea Nitrogen 20 mg/dL (9-20); Carbon Dioxide 26 mmol/L (22-30); Chloride 104 mmol/L (98-107); Glucose 75 mg/dL (74-99); Lipase 131 U/L (23-300); Non-African American GFR(CKD) >90 (>60 ml/min/1.73 sqM); Potassium 3.9 mmol/L (3.5-5.1); Sodium 139 mmol/L (137-145); Total Bilirubin 0.4 mg/dL (0.2-1.3)
[2022-06-16] MEDS ORDERED: MAG HYDROX/AL HYDROX/SIMETH 30 ML, HYOSCYAMINE ELIXIR 10 ML, LIDOCAINE VISCOUS 2% 10 ML PO STA ×3 (18:02)
[2022-06-16] MEDS ORDERED: KETOROLAC 15 MG/ML 1 ML VIAL IVP STA (18:02)
[2022-06-16 19:29] VITALS: BP 107/70; PULSE 50; RESP 16; TEMP 97.6
== END 2022-06-16 19:32 | disposition home or self-care (01) ==
LOC: EC 13:51
DX: R10.9 Unspecified abdominal pain (principal); F41.9 Anxiety disorder, unspecified; F32.A Depression, unspecified; Z87.891 Personal history of nicotine dependence; Z88.0 Allergy status to penicillin; Z88.2 Allergy status to sulfonamides
CPT/HCPCS: 36415; 80053; 82150; 83690; 85025; 99284; 96374; J1885

== ENCOUNTER 2022-06-25 19:23 | Emergency (ER) | payer OTHER ==
[2022-06-25 19:37] VITALS: TEMP 98.2
[2022-06-25] MEDS ORDERED: SODIUM CHLORIDE 0.9% 1,000 ML IV STA (20:16)
[2022-06-25] MEDS ORDERED: ONDANSETRON 4 MG/2 ML VIAL IVP STA (20:16)
[2022-06-25] MEDS ORDERED: KETOROLAC 15 MG/ML 1 ML VIAL IVP STA (20:16)
[2022-06-25 21:08] LABS: Basophils % (A) 0 %; Eosinophils # (A) 0.1 k/uL (0-0.7); Eosinophils % (A) 1 %; HCT 42.5 % (39.0-53.0); Lymphocytes # (A) 1.1 k/uL (1.0-4.8); Lymphocytes % (A) 12 %; MCH 31.1 pg (25.0-35.0); MCHC 35.3 g/dL (31.0-37.0); MCV 88.3 fL (80.0-100.0); Mean Platelet Volume 8.3; Monocytes # (A) 0.5 k/uL (0-1.0); Monocytes % (A) 5 %; Neutrophils # (A) 7.3 k/uL (1.3-7.7); Neutrophils % (A) 80 %; Platelet Count 150 k/uL (150-450); RBC 4.82 m/uL (4.30-5.90); RDW 12.3 % (11.5-15.5); WBC 9.2 k/uL (3.8-10.6)
[2022-06-25 21:17] VITALS: BP 122/73
[2022-06-25 21:27] LABS: Partial Thromboplastin Time 25.7 sec (22.0-30.0); Prothrombin Time 10.5 sec (9.0-12.0)
--- NOTE | 2022-06-25 21:29 | CT ---
EXAMINATION TYPE: CT abdomen pelvis w con DATE OF EXAM: 06/25/2022 COMPARISON: None. HISTORY: Nausea and diarrhea yesterday. Fever today CT DLP: 676.7 mGycm, Automated Exposure Control for Dose Reduction was Utilized. CONTRAST: CT scan of the abdomen and pelvis is performed with oral and with IV Contrast, patient inje cted with 100cc mL of Isovue 300. FINDINGS: LUNG BASES: No significant abnormality is appreciated. LIVER/GB: No acute findings. PANCREAS: No significant abnormality is seen. SPLEEN: No significant abnormality is seen. ADRENALS: No nodules.. KIDNEYS: No acute findings. ANTERIOR ABDOMINAL WALL: Intact. BOWEL: No significant abnormality is seen. Appendix is normal. Colonic stool volume within normal diehl its. PROSTATE/SEMINAL VESICLES: No gross abnormality seen. LYMPH NODES: No greater than 1cm abdominal or pelvic lymph nodes are appreciated. OSSEOUS STRUCTURES: No significant abnormality is seen. VASCULAR STRUCTURES: No acute findings. IMPRESSION: No significant acute finding is seen to account for patient's clinical symptoms.
[2022-06-25 21:33] LABS: ALT 16 U/L (4-49); AST 25 U/L (17-59); African American GFR (CKD) >90 (>60 ml/min/1.73 sqM); Albumin 4.4 g/dL (3.5-5.0); Alkaline Phosphatase 45 U/L (38-126); Amylase 51 U/L (30-110); Anion Gap 5 mmol/L; Blood Urea Nitrogen 13 mg/dL (9-20); Calcium 9.3 mg/dL (8.4-10.2); Carbon Dioxide 30 mmol/L (22-30); Chloride 103 mmol/L (98-107); Glucose 85 mg/dL (74-99); Lipase 111 U/L (23-300); Non-African American GFR(CKD) >90 (>60 ml/min/1.73 sqM); Potassium 4.3 mmol/L (3.5-5.1); Sodium 138 mmol/L (137-145); Total Bilirubin 0.4 mg/dL (0.2-1.3); Total Protein 6.8 g/dL (6.3-8.2)
--- NOTE | 2022-06-25 22:18 | ED ---
Abdominal Pain HPI - General Chief Complaint: Abdominal Pain Stated Complaint: nausea,abd pain Time Seen by Provider: 06/25/22 19:54 Source: patient Mode of arrival: ambulatory Limitations: no limitations - History of Present Illness Initial Comments: Patient is a 27-year-old male presenting with chief complaint of "I'm not feeling well". Patient has been experiencing nausea, vomiting, and chills today. He states that yesterday he started getting a sharp pain in the right lower quadrant which has continued into today. Patient's mother currently has Covid, he has tested negative at home but wants to ensure that he does not have Covid. No fevers or chills. No chest pain or difficulty breathing. No diarrhea. No dysuria or hematuria. - Related Data Previous Rx's Medication Instructions Recorded Lidocaine 5% Patch [Lidoderm 5% 1 patch TOPICAL DAILY PRN #1 pack 02/25/22 Patch] Ibuprofen [Motrin] 600 mg PO Q8HR PRN #30 tab 06/16/22 Ondansetron Odt [Zofran Odt] 4 mg PO Q8HR PRN #10 tab 06/16/22 Ondansetron Odt [Zofran Odt] 4 mg PO Q8HR PRN #15 tab 06/25/22 Allergies Allergy/AdvReac Type Severity Reaction Status Date / Time Penicillins Allergy Anaphylaxis Verified 06/25/22 19:37 Sulfa (Sulfonamide Allergy Rash/Hives Verified 06/25/22 19:37 Antibiotics) on entire body Review of Systems ROS Statement: Those systems with pertinent positive or pertinent negative responses have been documented in the HPI. ROS Other: All systems not noted in ROS Statement are negative. Past Medical History Past Medical History: No Reported History Additional Past Medical History / Comment(s): colitis, spastic History of Any Multi-Drug Resistant Organisms: None Reported Past Surgical History: Adenoidectomy, Tonsillectomy Additional Past Surgical History / Comment(s): all teeth removed, Past Psychological History: ADD/ADHD, Anxiety, Depression, Schizophrenia Smoking Status: Former smoker Past Alcohol Use History: Rare Past Drug Use History: Marijuana General Exam Limitations: no limitations General appearance: alert, in no apparent distress Head exam: Present: atraumatic, normocephalic, normal inspection Eye exam: Present: normal appearance, EOMI. Absent: scleral icterus, periorbital swelling Neck exam: Present: normal inspection, full ROM Respiratory exam: Present: normal lung sounds bilaterally. Absent: respiratory distress, wheezes, rales, rhonchi, stridor Cardiovascular Exam: Present: regular rate, normal rhythm, normal heart sounds. Absent: systolic murmur, diastolic murmur, rubs, gallop, clicks GI/Abdominal exam: Present: soft, tenderness. Absent: distended, guarding, rebound, rigid Neurological exam: Present: alert, oriented X3, CN II-XII intact Psychiatric exam: Present: normal affect, normal mood Skin exam: Present: warm, dry, intact, normal color. Absent: rash Course Vital Signs 06/25/22 06/25/22 06/25/22 19:33 21:16 22:30 Temperature 98.2 F Pulse Rate 85 60 75 Respiratory 20 16 15 Rate Blood Pressure 124/79 122/73 122/73 O2 Sat by Pulse 98 100 96 Oximetry Medical Decision Making - Medical Decision Making Was pt. sent in by a medical professional or institution (, PA, [employer], urgent care, hospital, or longterm...) When possible be specific @ -No Did you speak to anyone other than the patient for history (EMS, parent, family, police, friend...)? What history was obtained from this source @ -No Did you review nursing and triage notes (agree or disagree)? Why? @ -I reviewed and agree with nursing and triage notes Were old charts reviewed (outside hosp., previous admission, EMS record, old EKG, old radiological studies, urgent care reports/EKG's, longterm records)? Report findings @ -No old charts were reviewed Differential Diagnosis (chest pain, altered mental status, abdominal pain women, abdominal pain men, vaginal bleeding, weakness, fever, dyspnea, syncope, headache, dizziness, GI bleed, back pain, seizure, CVA, palpatations, mental health, musculoskeletal)? @ -[facility] Differential Abdominal Pain Men: Appendicitis, cholecystitis, diverticulosis, ischemic bowel, pancreatitis, hepatitis, UTI, gastroenteritis, AAA, incarcerated hernia, bowel obstruction, constipation, inflammatory bowel, hepatitis, peptic ulcer disease, splenic infarction, perforated viscus, testicular torsion... This is not meant to be an all-inclusive list EKG interpreted by me (3pts min.). @ -As above X-rays interpreted by me (1pt min.). @ -None done CT interpreted by me (1pt min.). @ -CT shows no acute process U/S interpreted by me (1pt. min.). @ -None done What testing was considered but not performed or refused? (CT, X-rays, U/S, labs)? Why? @ -None What meds were considered but not given or refused? Why? @ -None Did you discuss the management of the patient with other professionals (professionals i.e. , PA, [employer], lab, RT, psych nurse, social worker psychiatric, civil engineering professor, teacher, chief merchandising officer, rifle case repairer)? Give summary @ -No Was smoking cessation discussed for >3mins.? @ -No Was critical care preformed (if so, how long)? @ -No Were there social determinants of health that impacted care today? How? (Homelessness, low income, unemployed, alcoholism, drug addiction, transportation, low edu. Level, literacy, decrease access to med. care, halfway, rehab)? @ -No Was there de-escalation of care discussed even if they declined (Discuss DNR or withdrawal of care, Hospice)? DNR status @ -No What co-morbidities impacted this encounter? (DM, HTN, Smoking, COPD, CAD, Cancer, CVA, ARF, Chemo, Hep., AIDS, mental health diagnosis, sleep apnea, morbi d obesity)? @ -None Was patient admitted / discharged? Hospital course, mention meds given and route, prescriptions, significant lab abnormalities, going to OR and other pertinent info. @ -Charge. Patient is a 27-year-old male presenting with chief complaint of chills, nausea, vomiting, right lower quadrant pain. [facility] On physical examination there is some tenderness on palpation of the right lower quadrant. Lab work is unremarkable. Covid is negative. CT is negative. Patient is educated on these findings. Educated on supportive management at home. Provided with prescription for Zofran. He is resting comfortably and is stable for discharge. Follow-up with PCP. Report back to ER with any new or worsening symptoms. Discussed return parameters and answered all questions. Patient conveyed verbal understanding and agreed to the plan. I discussed this case in detail with my attending Dr. Ascencio Undiagnosed new problem with uncertain prognosis? @ -No Drug Therapy requiring intensive monitoring for toxicity (Heparin, Nitro, Insulin, Cardizem)? @ -No Were any procedures done? @ -No Diagnosis/symptom? @ -Nausea and vomiting Acute, or Chronic, or Acute on Chronic? @ -Acute Uncomplicated (without systemic symptoms) or Complicated (systemic symptoms)? @ -Uncomplicated Side effects of treatment? @ -No Exacerbation, Progression, or Severe Exacerbation? @ -No Poses a threat to life or bodily function? How? (Chest pain, [place], [place], pneumonia, PE, COPD, DKA, ARF, appy, cholecystitis, CVA, Diverticulitis, Homicidal, Suicidal, threat to staff... and all critical care pts) @ -No - Lab Data Result diagrams: 06/25/22 20:28 06/25/22 20:28 Lab Results 06/25/22 06/25/22 06/25/22 Range/Units 20:28 20:28 20:28 WBC 9.2 (3.8-10.6) k/uL RBC 4.82 (4.30-5.90) m/uL Hgb 15.0 (13.0-17.5) gm/dL Hct 42.5 (39.0-53.0) % MCV 88.3 (80.0-100.0) fL MCH 31.1 (25.0-35.0) pg MCHC 35.3 (31.0-37.0) g/dL RDW 12.3 (11.5-15.5) % Plt Count 150 (150-450) k/uL MPV 8.3 Neutrophils % 80 % Lymphocytes % 12 % Monocytes % 5 % Eosinophils % 1 % Basophils % 0 % Neutrophils # 7.3 (1.3-7.7) k/uL Lymphocytes # 1.1 (1.0-4.8) k/uL Monocytes # 0.5 (0-1.0) k/uL Eosinophils # 0.1 (0-0.7) k/uL Basophils # 0.0 (0-0.2) k/uL PT 10.5 (9.0-12.0) sec INR 1.0 (<1.2) APTT 25.7 (22.0-30.0) sec Sodium 138 (137-145) mmol/L Potassium 4.3 (3.5-5.1) mmol/L Chloride 103 (98-107) mmol/L Carbon Dioxide 30 (22-30) mmol/L Anion Gap 5 mmol/L BUN 13 (9-20) mg/dL Creatinine 0.84 (0.66-1.25) mg/dL Est GFR (CKD-EPI)AfAm >90 (>60 ml/min/1.73 sqM) Est GFR (CKD-EPI)NonAf >90 (>60 ml/min/1.73 sqM) Glucose 85 (74-99) mg/dL Plasma Lactic Acid Reggie (0.7-2.0) mmol/L Calcium 9.3 (8.4-10.2) mg/dL Total Bilirubin 0.4 (0.2-1.3) mg/dL AST 25 (17-59) U/L ALT 16 (4-49) U/L Alkaline Phosphatase 45 (38-126) U/L Total Protein 6.8 (6.3-8.2) g/dL Albumin 4.4 (3.5-5.0) g/dL Amylase 51 (30-110) U/L Lipase 111 (23-300) U/L Coronavirus (PCR) (Not Detectd) 06/25/22 06/25/22 Range/Units 20:28 20:38 WBC (3.8-10.6) k/uL RBC (4.30-5.90) m/uL Hgb (13.0-17.5) gm/dL Hct (39.0-53.0) % MCV (80.0-100.0) fL MCH (25.0-35.0) pg MCHC (31.0-37.0) g/dL RDW (11.5-15.5) % Plt Count (150-450) k/uL MPV Neutrophils % % Lymphocytes % % Monocytes % % Eosinophils % % Basophils % % Neutrophils # (1.3-7.7) k/uL Lymphocytes # (1.0-4.8) k/uL Monocytes # (0-1.0) k/uL Eosinophils # (0-0.7) k/uL Basophils # (0-0.2) k/uL PT (9.0-12.0) sec INR (<1.2) APTT (22.0-30.0) sec Sodium (137-145) mmol/L Potassium (3.5-5.1) mmol/L Chloride (98-107) mmol/L Carbon Dioxide (22-30) mmol/L Anion Gap mmol/L BUN (9-20) mg/dL Creatinine (0.66-1.25) mg/dL Est GFR (CKD-EPI)AfAm (>60 ml/min/1.73 sqM) Est GFR (CKD-EPI)NonAf (>60 ml/min/1.73 sqM) Glucose (74-99) mg/dL Plasma Lactic Acid Reggie 0.8 (0.7-2.0) mmol/L Calcium (8.4-10.2) mg/dL Total Bilirubin (0.2-1.3) mg/dL AST (17-59) U/L ALT (4-49) U/L Alkaline Phosphatase (38-126) U/L Total Protein (6.3-8.2) g/dL Albumin (3.5-5.0) g/dL Amylase (30-110) U/L Lipase (23-300) U/L Coronavirus (PCR) Not Detected (Not Detectd) Disposition Clinical Impression: Nausea & vomiting Disposition: HOME SELF-CARE Condition: Good Instructions (If sedation given, give patient instructions): Acute Nausea and Vomiting (ED), Abdominal Pain (ED) Additional Instructions: Follow-up with PCP. Report back to ER with any new or worsening symptoms. Take medication as prescribed. Prescriptions: Ondansetron Odt [Zofran Odt] 4 mg PO Q8HR PRN #15 tab PRN Reason: Nausea Is patient prescribed a controlled substance at d/c from ED?: No Referrals: None,Stated [Primary Care Provider] - 1-2 days Time of Disposition: 22:18
[2022-06-25 22:31] VITALS: PULSE 75; RESP 15
== END 2022-06-25 22:31 | disposition home or self-care (01) ==
LOC: EC 19:23
DX: R11.2 Nausea with vomiting, unspecified (principal); R10.31 Right lower quadrant pain; F12.90 Cannabis use, unspecified, uncomplicated; Z20.822 Contact with and (suspected) exposure to COVID-19; Z87.891 Personal history of nicotine dependence; Z88.0 Allergy status to penicillin; Z88.2 Allergy status to sulfonamides
CPT/HCPCS: 36415; 80053; 82150; 83605; 83690; 85025; 85610; 85730; 87635; 74177; 99284; 96360; Q9967

== ENCOUNTER 2023-03-12 19:51 | Emergency (ER) | payer OTHER ==
--- NOTE | 2023-03-12 20:14 | ED ---
General Adult HPI - General Source: patient, RN notes reviewed <Kyleigh Cobb - Last Filed: 03/12/23 20:12> - General Source: patient, RN notes reviewed, old records reviewed <Ryan Jorge - Last Filed: 03/12/23 22:36> - General Stated complaint: Right arm numbness, rib pain Time Seen by Provider: 03/12/23 20:12 - History of Present Illness Initial comments: Patient is a 38-year-old male presented ER with chief complaint of right arm numbness. Patient states this started about an hour ago. Patient also is endorsing right-sided chest pain with radiation to the back. Patient also states he is having some shortness of breath. Patient describes his pain as his arm is in a "constant relaxed state". (Kyleigh Cobb) Patient is a 28-year-old male presents emergency Department complaining of multiple complaints. He has a history of anxiety and psychiatric complaints. States he had some paresthesias the right upper extremity as well as pain in the right shoulder as well as in the right armpit. Worse with movements of the right arm as well as torso. 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 Symptoms began after work. When he turns his head he begins having some symptoms as well particularly when turning his head to the left. No midline cervical spine tenderness. No falls. No trauma. No weakness. No other acute complaints at this time. Denies any fevers, chills, cough. There is any cardiac conditions. Presents for further evaluation. Symptoms began multiple hours ago. They are improving. She originally evaluated as a quick note. Quick note states his right-sided chest pain radiation of the back but is more wrapping around the ribs on the right side. (Ryan Jorge) - Related Data Home Medications Medication Instructions Recorded Confirmed No Known Home Medications 03/12/23 03/12/23 Allergies Allergy/AdvReac Type Severity Reaction Status Date / Time Penicillins Allergy Anaphylaxis Verified 03/12/23 21:28 Sulfa (Sulfonamide Allergy Rash/Hives Verified 03/12/23 21:28 Antibiotics) on entire body Review of Systems ROS Other: All systems not noted in ROS Statement are negative. <Kyleigh Cobb - Last Filed: 03/12/23 20:12> ROS Other: All systems not noted in ROS Statement are negative. <Ryan Jorge - Last Filed: 03/12/23 22:36> ROS Statement: Those systems with pertinent positive or pertinent negative responses have been documented in the HPI. Review of Systems: CONST: Denies fever EYES: Denies blurry vision ENT: Denies nasal congestion C/V: Denies Chest pain RESP: Denies shortness of breath GI: Denies abdominal pain : Denies dysuria SKIN: Denies rash. MSK: Endorses right arm paresthesias, right-sided chest wall pain. NEURO: Denies headache (Ryan Jorge) Past Medical History Past Medical History: No Reported History Additional Past Medical History / Comment(s): colitis, spastic History of Any Multi-Drug Resistant Organisms: None Reported Past Surgical History: Adenoidectomy, Tonsillectomy Additional Past Surgical History / Comment(s): all teeth removed, Past Psychological History: ADD/ADHD, Anxiety, Depression, Schizophrenia Smoking Status: Former smoker Past Alcohol Use History: Rare Past Drug Use History: Marijuana <Kyleigh Cobb - Last Filed: 03/12/23 20:12> General Exam <Kyleigh Cobb - Last Filed: 03/12/23 20:12> <Ryan Jorge - Last Filed: 03/12/23 22:36> - General Exam Comments Initial Comments: Visual Physical Exam Vital signs reviewed General: Well-appearing, nontoxic, no acute distress. Head: Normocephalic, atraumatic Eyes: PERRLA, EOMI ENT: Airway patent Chest: Nonlabored breathing Skin: No visual rash, normal skin tone Neuro: Alert and oriented 3 Musculoskeletal: No gross abnormalities (Kyleigh Cobb) General: Appears in no acute distress. HEAD: Normal with no signs of head trauma. EYES: PERRLA, EOMI, conjunctiva normal, no discharge. Pupils are 3 mm and equal bilaterally. ENT: Hearing grossly intact, normal oropharynx. RESPIRATORY: Clear breath sounds bilaterally. No wheezes, rales, or rhonchi. C/V: Regular rate and rhythm. S1 and S2 auscultated, peripheral pulses 2+ and intact throughout ABD: Abd is soft, nontender, nondistended EXT: Normal range of motion, no obvious deformity SKIN: No rashes or lesions observed on exposed skin. NEURO: Alert and oriented x 4. Cranial nerves II-XII intact. No focal sensory or strength deficits. Subjective paresthesias of the right upper extremity. No other focal deficits. No weakness. (Ryan Jorge) Course Vital Signs 03/12/23 20:22 Temperature 97.9 F Pulse Rate 64 Respiratory 22 Rate Blood Pressure 117/70 O2 Sat by Pulse 99 Oximetry Medical Decision Making <Kyleigh Cobb - Last Filed: 03/12/23 20:12> - Lab Data Result diagrams: 03/12/23 21:27 03/12/23 21:27 - EKG Data -: EKG Interpreted by Me <Ryan Jorge - Last Filed: 03/12/23 22:36> - Medical Decision Making I performed the quick note portion of the exam. Electronically signed by Kyleigh Cobb PA-C (Kyleigh Cobb) Was pt. sent in by a medical professional or institution (COREY Rivera, [employer] GENER[employer], urgent care, hospital, or long-term...) When possible be specific @ -No Did you speak to anyone other than the patient for history (EMS, parent, family, police, friend...)? What history was obtained from this source @ -No Did you review nursing and triage notes (agree or disagree)? Why? @ -I reviewed and agree with nursing and triage notes Were old charts reviewed (outside hosp., previous admission, EMS record, old EKG, old radiological studies, urgent care reports/EKG's, long-term records)? Report findings @ -Old charts reviewed Differential Diagnosis (chest pain, altered mental status, abdominal pain women, abdominal pain men, vaginal bleeding, weakness, fever, dyspnea, syncope, headache, dizziness, GI bleed, back pain, seizure, CVA, palpatations, mental health, musculoskeletal)? @ -Differential Chest Pain: Stable Angina, Unstable Angina, STEMI, NSTEMI Aortic Dissection, Pneumothorax, Musculoskeletal, Esophageal Spasm GERD, Cholecystitis, Pancreatitis, Zoster, this is not meant to be an all-inclusive list. Differential Musculoskeletal Muscular strain, contusion, ligament sprain, fracture, arthritis, septic arthritis, bursitis, cellulitis, muscle spasm, nerve compression, DVT, arterial occlusion, herpes zoster, electrolyte abnormality, tumor.... This is not meant to be in all inclusive list EKG interpreted by me (3pts min.). @ -As above X-rays interpreted by me (1pt min.). @ -Chest x-ray reveals no obvious acute cardio pulmonary process. Right shoulder x-ray reveals no obvious acute injury or process. CT interpreted by me (1pt min.). @ -None done U/S interpreted by me (1pt. min.). @ -None done What testing was considered but not performed or refused? (CT, X-rays, U/S, labs)? Why? @ -None What meds were considered but not given or refused? Why? @ -None Did you discuss the management of the patient with other professionals (professionals i.e. DrFidel, PA, [employer] GENER[employer], lab, RT, psych nurse, dialysis social worker, harbor engineer, teacher, chief safety officer, shelter case manager)? Give summary @ -No Was smoking cessation discussed for >3mins.? @ -No Was critical care preformed (if so, how long)? @ -No Were there social determinants of health that impacted care today? How? (Homelessness, low income, unemployed, alcoholism, drug addiction, transportation, low edu. Level, literacy, decrease access to med. care, [facility], rehab)? @ -No Was there de-escalation of care discussed even if they declined (Discuss DNR or withdrawal of care, Hospice)? DNR status @ -No What co-morbidities impacted this encounter? (DM, HTN, Smoking, COPD, CAD, Cancer, CVA, ARF, Chemo, Hep., AIDS, mental health diagnosis, sleep apnea, morbid obesity)? @ -None Was patient admitted / discharged? Hospital course, mention meds given and route, prescriptions, significant lab abnormalities, going to OR and other pertinent info. @ -Based on the patient's presentation and physical exam, presents with what seems like musculoskeletal right shoulder and chest wall pain as well as paresthesias of the right upper extremity which seems to be more radiculopathy in nature. Paresthesias seem somewhat worse when turning his head to the left. Pain in his right arm. It also reproduces this on movement. Discussed this with the patient however is patient was urgently seen as a quick no we will screen the patient for possible PE for atypical chest pain as well as for any cardiac etiology of his symptoms. He was in agreement this plan. He'll be given IV Toradol, as well as lidocaine patch. Vital signs within acceptable limits. EKG showed no signs of acute ischemia.Patient's laboratory studies are within acceptable limits. D-dimer is within a couple limits. Troponin undetectable. EKG shows no signs of acute ischemia. Chest x-ray and shoulder x-ray negative for any obvious acute process. On reevaluation, patient is feeling improved. We discussed his workup. Patient is a heart score that is low. Seems to have chest wall pain that is worse on palpation with movement as well as likely cervical radiculopathy as his symptoms in his right upper extremity seem to worsen turning his neck. I did recommend rest, as well as symptomatic treatment with lidocaine patches which he has at home as well as Motrin and Tylenol. He was in agreement this plan. He'll be discharged home at this time. Patient was in agreement this plan. Strict return precautions discussed. I instructed the patient to follow up with their PCP in the next 1-3 days. I explained that the patient should return to the emergency department if they experience any worsening symptoms. Strict return precautions were discussed with the patient. The patient expressed understanding of these instructions. I answered all questions that the patient had. The patient was discharged home in good condition with their prescriptions and follow up information. Undiagnosed new problem with uncertain prognosis? @ -No Drug Therapy requiring intensive monitoring for toxicity (Heparin, Nitro, Insulin, Cardizem)? @ -No Were any procedures done? @ -No Diagnosis/symptom? @ -Chest wall pain, right upper extremity radiculopathy, muscle strain Acute, or Chronic, or Acute on Chronic? @ -Acute Uncomplicated (without systemic symptoms) or Complicated (systemic symptoms)? @ -Uncomplicated Side effects of treatment? @ -none Exacerbation, Progression, or Severe Exacerbation] @ -no Poses a threat to life or bodily function? @ -no (Ryan Jorge) - Lab Data Lab Results 03/12/23 03/12/23 03/12/23 Range/Units 21:27 21:27 21:27 WBC 9.3 (3.8-10.6) k/uL RBC 4.93 (4.30-5.90) m/uL Hgb 15.5 (13.0-17.5) gm/dL Hct 44.7 (39.0-53.0) % MCV 90.6 (80.0-100.0) fL MCH 31.4 (25.0-35.0) pg MCHC 34.7 (31.0-37.0) g/dL RDW 12.0 (11.5-15.5) % Plt Count 197 (150-450) k/uL MPV 8.0 PT 11.0 (10.0-12.5) sec INR 1.0 (<1.2) APTT 27.7 (22.0-30.0) sec D-Dimer 0.36 (<0.60) mg/L FEU Sodium 138 (137-145) mmol/L Potassium 3.8 (3.5-5.1) mmol/L Chloride 102 (98-107) mmol/L Carbon Dioxide 25 (22-30) mmol/L Anion Gap 11 mmol/L BUN 13 (9-20) mg/dL Creatinine 0.90 (0.66-1.25) mg/dL Est GFR (CKD-EPI)AfAm >90 (>60 ml/min/1.73 sqM) Est GFR (CKD-EPI)NonAf >90 (>60 ml/min/1.73 sqM) Glucose 104 H (74-99) mg/dL Calcium 9.5 (8.4-10.2) mg/dL Total Bilirubin 0.6 (0.2-1.3) mg/dL AST 31 (17-59) U/L ALT 21 (4-49) U/L Alkaline Phosphatase 51 (38-126) U/L Troponin I (0.000-0.034) ng/mL Total Protein 7.4 (6.3-8.2) g/dL Albumin 4.8 (3.5-5.0) g/dL 03/12/23 Range/Units 21:27 WBC (3.8-10.6) k/uL RBC (4.30-5.90) m/uL Hgb (13.0-17.5) gm/dL Hct (39.0-53.0) % MCV (80.0-100.0) fL MCH (25.0-35.0) pg MCHC (31.0-37.0) g/dL RDW (11.5-15.5) % Plt Count (150-450) k/uL MPV PT (10.0-12.5) sec INR (<1.2) APTT (22.0-30.0) sec D-Dimer (<0.60) mg/L FEU Sodium (137-145) mmol/L Potassium (3.5-5.1) mmol/L Chloride (98-107) mmol/L Carbon Dioxide (22-30) mmol/L Anion Gap mmol/L BUN (9-20) mg/dL Creatinine (0.66-1.25) mg/dL Est GFR (CKD-EPI)AfAm (>60 ml/min/1.73 sqM) Est GFR (CKD-EPI)NonAf (>60 ml/min/1.73 sqM) Glucose (74-99) mg/dL Calcium (8.4-10.2) mg/dL Total Bilirubin (0.2-1.3) mg/dL AST (17-59) U/L ALT (4-49) U/L Alkaline Phosphatase (38-126) U/L Troponin I <0.012 (0.000-0.034) ng/mL Total Protein (6.3-8.2) g/dL Albumin (3.5-5.0) g/dL - EKG Data EKG Comments: 12-lead Electrocardiogram Interpretation Note EKG was reviewed and interpreted by myself. 12-lead ECG performed at 2126 is interpreted by me as revealing sinus bradycardia at a rate of 52 beats per minute. Holden is normal. NM interval is 142 ms, QRS duration is 87 ms, QTc is 412 ms.. There were no ST or T wave abnormalities to suggest myocardial ischemia or injury. R wave progression across the precordium was satisfactory. By my interpretation this EKG is non-diagnostic for acute ischemia. (Ryan Jorge) Disposition <Kyleigh Cobb - Last Filed: 03/12/23 20:12> Is patient prescribed a controlled substance at d/c from ED?: No Time of Disposition: 22:30 <Ryan Jorge - Last Filed: 03/12/23 22:36> Clinical Impression: Chest wall pain, Radicular pain in right arm, Muscle strain Disposition: HOME SELF-CARE Condition: Good Instructions (If sedation given, give patient instructions): Chest Wall Pain (ED) Referrals: None,Stated [Primary Care Provider] - 1-2 days Forms: Area PCPs
[2023-03-12 20:36] VITALS: TEMP 97.9
--- NOTE | 2023-03-12 21:23 | XR ---
EXAMINATION TYPE: XR chest 2V DATE OF EXAM: 03/12/2023 COMPARISON: 02/25/2022 INDICATION: Pain right upper arm TECHNIQUE: Frontal and lateral views of the chest are obtained. FINDINGS: The heart size is normal. The pulmonary vasculature is normal. The lungs are clear. IMPRESSION: 1. No acute pulmonary process.
--- NOTE | 2023-03-12 21:24 | XR ---
EXAMINATION TYPE: XR shoulder complete RT DATE OF EXAM: 03/12/2023 COMPARISON: NONE HISTORY: Pain TECHNIQUE: Shoulder examined in 3 projections. FINDINGS: The humeral head articulates with the glenoid. The acromio-clavicular junction is normal. No acute fractures or dislocations are evident. A follow up study can be performed 7-10 days from acute trauma for continued pain. MRI can be perfor med if soft tissue evaluation would be of benefit. IMPRESSION: 1. No acute osseous shoulder abnormality.
[2023-03-12] MEDS ORDERED: LIDOCAINE 4% PATCH TOPICAL STA (21:33)
[2023-03-12] MEDS ORDERED: KETOROLAC 15 MG/ML 1 ML VIAL IVP STA (21:33)
[2023-03-12 21:57] LABS: HCT 44.7 % (39.0-53.0); HGB 15.5 gm/dL (13.0-17.5); MCH 31.4 pg (25.0-35.0); MCHC 34.7 g/dL (31.0-37.0); MCV 90.6 fL (80.0-100.0); Platelet Count 197 k/uL (150-450); RBC 4.93 m/uL (4.30-5.90); WBC 9.3 k/uL (3.8-10.6)
[2023-03-12 22:16] LABS: Partial Thromboplastin Time 27.7 sec (22.0-30.0)
[2023-03-12 22:20] LABS: ALT 21 U/L (4-49); AST 31 U/L (17-59); African American GFR (CKD) >90 (>60 ml/min/1.73 sqM); Albumin 4.8 g/dL (3.5-5.0); Alkaline Phosphatase 51 U/L (38-126); Anion Gap 11 mmol/L; Blood Urea Nitrogen 13 mg/dL (9-20); Calcium 9.5 mg/dL (8.4-10.2); Carbon Dioxide 25 mmol/L (22-30); Chloride 102 mmol/L (98-107); Glucose 104 mg/dL (74-99); Non-African American GFR(CKD) >90 (>60 ml/min/1.73 sqM); Potassium 3.8 mmol/L (3.5-5.1); Sodium 138 mmol/L (137-145); Total Bilirubin 0.6 mg/dL (0.2-1.3); Total Protein 7.4 g/dL (6.3-8.2)
[2023-03-12 22:58] VITALS: BP 114/82; PULSE 61; RESP 18
== END 2023-03-12 22:57 | disposition home or self-care (01) ==
LOC: EC 19:51
DX: S46.911A Strain of unspecified muscle, fascia and tendon at shoulder and upper arm level, right arm, initial encounter (principal); R07.89 Other chest pain; M54.10 Radiculopathy, site unspecified; F12.90 Cannabis use, unspecified, uncomplicated; Z88.0 Allergy status to penicillin; Z88.2 Allergy status to sulfonamides; Z87.891 Personal history of nicotine dependence; X58.XXXA Exposure to other specified factors, initial encounter
CPT/HCPCS: 36415; 93005; 85379; 80053; 84484; 85027; 85610; 85730; 73030; 71046; 99284; 96374; J1885